=== PATIENT | female | born 1965 | race Asian ===

== ENCOUNTER 2016-11-29 04:02 | Emergency (ER) | payer BC ==
[~2016-11-29] VITALS: Ht 160 cm; Wt 71.0 kg
[~2016-11-29 04:02] MED LIST: COLACE100 MG PO; FLEXERIL10 MG PO; PERCOCET 5/31 TABLET PO; VALIUM5 MG PO; VIBRAMYCIN100 MG PO
[2016-11-29 05:12] LABS: EOSINOPHIL (%) 0 % (0-5); HEMATOCRIT 38.8 % (36.0-46.0); IMMATURE GRANULOCYTE (%) 0.2 % (0.0-0.7); INSTRUMENT ABS NEUTROPHIL CT 7.6 K/uL; LYMPHOCYTE COUNT 0.7 K/uL (1.0-2.8); MCH 31.3 PG (29.0-34.0); MCHC 33.5 G/DL (30.0-36.0); MCV 93.5 FL (83-99); MEAN PLAT.VOLUME 11.7 uM^3 (9.5-12.4); MONOCYTE (%) 0.7 % (3-12); MONOCYTE COUNT 0.1 K/uL (0-0.8); NEUTROPHIL (%) 91.2 % (45-76); NEUTROPHIL COUNT 7.6 K/uL (1.8-6.4); PLATELET COUNT 202 K/uL (156-360); RBC DIS.WIDTH-SD 44.7 % (39-53); RED BLOOD COUNT 4.15 M/uL (3.80-5.20); WHITE BLOOD COUNT 8.3 K/uL (4.1-10.2)
[2016-11-29 05:18] LABS: D-DIMER ELISA 0.23 mg/L FEU (< 0.57)
[2016-11-29 05:20] LABS: CHLORIDE 107 mEq/L (99-109); SODIUM 142 mEq/L (136-147)
[2016-11-29 05:21] LABS: GLUCOSE 128 mg/dL (70-99)
[2016-11-29 05:23] LABS: ANION GAP 10 MEQ/L (2-14)
[2016-11-29 05:25] LABS: GFR ESTIMATE (CALCULATED) 56 mL/min/
[2016-11-29 05:26] LABS: UREA NITROGEN (BUN) 15 mg/dL (9-23)
[2016-11-29 05:28] LABS: TROP-I INTERPRETATION NEGATIVE; TROPONIN-I < 0.01 ng/mL (0.0-0.30)
[2016-11-29 07:51] LABS: TROP-I INTERPRETATION NEGATIVE; TROPONIN-I < 0.01 ng/mL (0.0-0.30)
[2016-11-29 08:27] VITALS: BP 123/79
== END 2016-11-29 08:32 | disposition home or self-care (01) ==
LOC: EME 04:02
PROVIDERS: Emergency Medicine
DX: R00.2 Palpitations (principal); R07.9 Chest pain, unspecified; Z96.642 Presence of left artificial hip joint
CPT/HCPCS: 71020; 80048; 84484; 85025; 85379; 93005